=== PATIENT | female | born 1985 | race Caucasian/White ===

== ENCOUNTER → 2016-07-26 | Day surgery (SDC) | payer OTHER ==
--- NOTE | 2016-07-26 15:04 | Operative Note ---
Surgeon/Diagnoses Surgeon/Fire Loss Prevention Engineer(s) Date of procedure: 07/26/16 Surgeon: MD Theron Colindres Diagnoses Pre-op diagnosis: Gastroesophageal reflux Dysphagia Post-op diagnosis Same as preoperative diagnoses, with the addition of the following: Sliding hiatal hernia Gastritis Procedure Procedure Procedure: Esophagogastroduodenoscopy with biopsy Indications: CRISS MCCAULEY is a 31 year-old Female with a history of dysphagia and reflux. Findings: Gastroesophageal junction at 38 cm Sliding hiatal hernia Focal moderate to severe patchy gastritis distally No ulceration or active bleeding noted Procedure Description: After informed consent was obtained, the patient was taken to the endoscopy suite. IV sedation ensued after she was transferred to the LEFT lateral decubitus position. The gastroscope was advanced. The gastroesophageal junction was at 38 cm. No significant inflammatory changes of the distal esophagus or gastroesophageal junction were noted. No strictures or mass lesions were seen. The stomach was entered. Retroflexion revealed a sliding hiatal hernia. The proximal and mid gastric body appeared relatively normal. Focal patches of moderate to severe gastritis were noted distally. Biopsies were obtained. The pylorus was intubated. The duodenal mucosa appeared relatively normal. The gastroscope was carefully removed and the patient was transferred to recovery. EBL (ml): 1 Anesthesia: IV sedation with 9 mg of Versed and 200 g of fentanyl Complications: No immediate Specimens: Biopsy of gastric antrum Disposition Disposition: Stable to recovery from where she will be discharged home. She will follow-up in one week. at [id number]
[2016-07-26 15:50] VITALS: BP 104/68
== END ==
LOC: SDC 07-19 14:00
PROVIDERS: Surgery
PROC: 0DB68ZX Excision of Stomach, Via Natural or Artificial Opening Endoscopic, Diagnostic (ICD-10-PCS; principal; 2016-07-26 14:30)
DX: K21.9 Gastro-esophageal reflux disease without esophagitis (principal); K44.9 Diaphragmatic hernia without obstruction or gangrene; R13.10 Dysphagia, unspecified; K29.70 Gastritis, unspecified, without bleeding